=== PATIENT | male | born 1945 | race Caucasian/White ===

== ENCOUNTER 2018-04-03 09:28 | Inpatient (IN) | payer MEDICARE, OTHER ==
[2018-04-03] VITALS (23 sets, daily range): BP systolic 113–182; BP diastolic 54–86
[~2018-04-03] VITALS: Ht 180.3 cm; Wt 104.0 kg
[~2018-04-03 09:28] MED LIST: etomidate 2mg/ml inj. ONE; rocuronium 10mg/ml inj IV ONE
[2018-04-03] MEDS ORDERED: normal saline 1000ML IV soln IVB ONE (10:05)
[2018-04-03] MEDS ORDERED: pantoprazole 40MG/NS 100ML BAG 100 ML IV ONE (10:05)
[2018-04-03] MEDS ORDERED: ondansetron/PF 4mg/2ml inj IV ONE (10:05)
[2018-04-03] MEDS ORDERED: morphine 4 MG/ML inj SYRINge IV ONE ×2 (10:05→11:15)
[2018-04-03] MEDS ORDERED: ipratropium/albuterol 3ml nebule NEB ONE (10:05)
[2018-04-03] MEDS ORDERED: diltiazem 5mg/ml 5ml inj. IV ONE (10:10)
[2018-04-03 10:30] LABS: BASOPHILS % (AUTO) 0 % (0-1); EOSINOPHILS # (AUTO) 0.4 X10'3 (0-0.9); EOSINOPHILS % (AUTO) 1.7 % (0-6); LYMPHOCYTES # (AUTO) 1.6 X10'3 (1.1-4.8); LYMPHOCYTES % (AUTO) 6.9 % (21-51); MEAN CORPUSCULAR HEMOGLOBIN 30.7 PG (27.0-31.0); MEAN CORPUSCULAR HGB CONC 32.6 % (33.0-36.5); MEAN CORPUSCULAR VOLUME 94.2 FL (78-98); MEAN PLATELET VOLUME 8.2 FL (7.4-10.4); MONOCYTES # (AUTO) 0.7 X10'3 (0-0.9); MONOCYTES % (AUTO) 2.9 % (2-12); NEUTROPHILS # (AUTO) 20.2 X10'3 (1.8-7.7); NEUTROPHILS % (AUTO) 88.5 % (42-75); PLATELET COUNT 342 X10'3 (140-440); RED BLOOD COUNT 1.96 X10'6 (4.70-6.10); RED CELL DISTRIBUTION WIDTH 18.1 % (11.5-14.5); WHITE BLOOD COUNT 22.8 X10'3 (4.5-11.0)
[2018-04-03 10:36] LABS: HEMATOCRIT 18.5 % (42.0-52.0)
[2018-04-03 10:39] LABS: ALANINE AMINOTRANSFERASE 15 U/L (12-78); ALBUMIN 2.4 G/DL (3.4-5.0); ALBUMIN/GLOBULIN RATIO 0.6 (1.1-1.5); ALKALINE PHOSPHATASE 72 IU/L (46-116); ANION GAP 22 (8-16); ASPARTATE AMINO TRANSFERASE 18 U/L (10-37); BILIRUBIN,TOTAL 0.2 MG/DL (0.1-1.0); BLOOD UREA NITROGEN 112 MG/DL (7-18); BUN/CREATININE RATIO 40.6 (5.4-32.0); CALCIUM 7.4 MG/DL (8.5-10.1); CHLORIDE 107 MMOL/L (99-107); CREATINE KINASE 86 U/L (39-308); CREATININE 2.76 MG/DL (0.60-1.10); GLUCOSE 147 MG/DL (70-104); LIPASE 295 U/L (73-393); MAGNESIUM 1.3 MG/DL (1.5-2.4); POTASSIUM 4.6 MMOL/L (3.5-5.1); SODIUM 142 MMOL/L (135-145); TOTAL PROTEIN 6.1 G/DL (6.4-8.2); eGFR 23 ML/MIN
[2018-04-03 10:44] LABS: GIANT PLATELET FEW; LARGE PLATELETS FEW; PLATELET ESTIMATE NORMAL
[2018-04-03 10:45] LABS: ANISOCYTOSIS 2+; INR 1.3 INR; POLYCHROMASIA 1+; PROTHROMBIN TIME 13.1 SECONDS (9.0-12.0)
[2018-04-03] MEDS ORDERED: tranexamic acid 100mg/ml inj. IV ONE (10:45)
[2018-04-03] MEDS ORDERED: methylPREDNISolone sod succ 125mg/2ml vial IV ONE (10:45)
[2018-04-03 10:46] LABS: PARTIAL THROMBOPLASTIN TIME 25 SECONDS (22-32)
[2018-04-03] MEDS ORDERED: levoFLOXACIN-Levaquin 500mg/D5 100 ML IV ONE (11:00)
[2018-04-03 11:26] LABS: ABG BASE EXCESS -11.6 mmol/L (-2.0-3.0); ABG HCO3 12.6 mmol/L (22.0-26.0); ABG OXYGEN SATURATION 98.6 % (95-98); ABG PCO2 (T) 21.8 mmHg (35.0-48.0); ABG PO2 (T) 178.3 mmHg (83-108); ALLEN'S TEST Positive; FCOHb 0.2 % (0.5-1.5); FMetHb 0.4 % (0.3-1.12); TOTAL HEMOGLOBIN 5.3 G/dl (14.0-18.0)
[2018-04-03] MEDS: sodium chloride 0.45% 1,000 ML IV SCH ×2 (11:39→15:18)
[2018-04-03] MEDS ORDERED: ipratropium/albuterol 3ml nebule NEB PRN (11:40)
[2018-04-03] MEDS ORDERED: magnesium hydroxide 30ml (MOM) UD suspension PO PRN (11:40)
[2018-04-03] MEDS ORDERED: acetaminophen 325mg tablet PO PRN ×2 (11:40)
[2018-04-03] MEDS ORDERED: magnesium 1gm/100ml D5W IVPB 100 ML IV PRN (11:40)
[2018-04-03] MEDS ORDERED: magnesium Cl slow-release 64mg tablet PO PRN (11:40)
[2018-04-03] MEDS ORDERED: sodium phosphate inj. 15 MMOL in dextrose 5%-water 150 ML IV PRN (11:40)
[2018-04-03] MEDS ORDERED: ondansetron/PF 4mg/2ml inj IV PRN (11:40)
[2018-04-03] MEDS: K, MAG and/or Phos replacement - Verify level? MC SCH (11:40)
[2018-04-03] MEDS ORDERED: magnesium 4gm in 100ml NS 100 ML IV PRN (11:40)
[2018-04-03] MEDS ORDERED: sodium phosphate inj. 30 MMOL in dextrose 5%-water 250 ML IV PRN (11:40)
[2018-04-03] MEDS ORDERED: potassium Cl 20 mEq SR tablet PO PRN ×2 (11:40)
[2018-04-03 11:42] LABS: CLARITY,URINE CLEAR (Clear); COLOR,URINE YELLOW (Yellow); GLUCOSE, URINE NEGATIVE (Neg); KETONES,URINE NEGATIVE (Neg); LEUKOCYTE ESTERASE ,URINE NEGATIVE (Neg); NITRITES, URINE NEGATIVE (Neg); OCCULT BLOOD,URINE NEGATIVE (Neg); PROTEIN,URINE NEGATIVE (Neg); UROBILINOGEN,URINE 0.2 E.U/dL (0.2-1.0)
[2018-04-03 11:45] LABS: UA COLLECTION TYPE FOLEY CATH
[2018-04-03] MEDS ORDERED: midazolam 2 mg/2 ml injection ONE ×2 (11:58→12:04)
[2018-04-03] MEDS ORDERED: propofol 1000mg/100ml bottle 100 ML IV ONE ×2 (12:14→15:11)
[2018-04-03 12:16] LABS: PHOSPHORUS 3.7 MG/DL (2.3-4.5)
[2018-04-03 13:51] LABS: ABG BASE EXCESS -12.1 mmol/L (-2.0-3.0); ABG HCO3 12.8 mmol/L (22.0-26.0); ABG OXYGEN SATURATION 98.7 % (95-98); ABG PCO2 (T) 25.1 mmHg (35.0-48.0); ABG PH (T) 7.327 (7.350-7.450); ABG PO2 (T) 193.5 mmHg (83-108); ALLEN'S TEST Positive; FCOHb 0.4 % (0.5-1.5); FLOW 35 L/min; FMetHb 0.4 % (0.3-1.12); FO2Hb 97.9 % (94-100); MINUTE VOLUME 11 L/min; PEEP 5 cm H2O; RESPIRATORY RATE 12 b/min; RESPIRATORY RATE (OBSERVED) 13 b/min; TIDAL VOLUME 450 mL; TOTAL HEMOGLOBIN 5.2 G/dl (14.0-18.0)
[2018-04-03] MEDS ORDERED: normal saline 1000ml 1,000 ML IV ONE (14:05)
[2018-04-03 15:11] LABS: OCCULT BLOOD STOOL POSITIVE (Neg)
[2018-04-03 15:51] LABS: PO2 MIXED VENOUS (TEMP COR) 44.4 mmHg (35-46)
[2018-04-03 18:30] LABS: HEMATOCRIT 22.4 % (42.0-52.0); HEMOGLOBIN 7.5 g/dl (14.0-17.9); MEAN CORPUSCULAR HEMOGLOBIN 30.4 PG (27.0-31.0); MEAN CORPUSCULAR HGB CONC 33.4 % (33.0-36.5); MEAN CORPUSCULAR VOLUME 91.2 FL (78-98); MEAN PLATELET VOLUME 7.7 FL (7.4-10.4); PLATELET COUNT 235 X10'3 (140-440); RED BLOOD COUNT 2.46 X10'6 (4.70-6.10); RED CELL DISTRIBUTION WIDTH 17.6 % (11.5-14.5); WHITE BLOOD COUNT 18.4 X10'3 (4.5-11.0)
[2018-04-03] MEDS: pantoprazole 40MG/NS 100ML BAG 100 ML IV SCH ×2 (18:59→21:31)
[2018-04-03] MEDS: morphine 4 MG/ML inj SYRINge IV PRN (19:20)
[2018-04-03] MEDS: propofol 1000mg/100ml bottle 100 ML IV PRN (21:36)
[2018-04-04] VITALS (28 sets, daily range): BP systolic 120–193; BP diastolic 43–173
[2018-04-04] MEDS: pantoprazole 40MG/NS 100ML BAG 100 ML IV SCH ×5 (00:42→19:42)
[2018-04-04] MEDS: morphine 4 MG/ML inj SYRINge IV PRN ×3 (00:49→20:10)
[2018-04-04 03:15] LABS: BASOPHILS % (AUTO) 0 % (0-1); EOSINOPHILS # (AUTO) 0.1 X10'3 (0-0.9); EOSINOPHILS % (AUTO) 0.9 % (0-6); HEMATOCRIT 28.1 % (42.0-52.0); HEMOGLOBIN 9.3 g/dl (14.0-17.9); LYMPHOCYTES # (AUTO) 0.6 X10'3 (1.1-4.8); LYMPHOCYTES % (AUTO) 3.9 % (21-51); MEAN CORPUSCULAR HEMOGLOBIN 30.1 PG (27.0-31.0); MEAN CORPUSCULAR HGB CONC 33.1 % (33.0-36.5); MEAN CORPUSCULAR VOLUME 90.9 FL (78-98); MONOCYTES # (AUTO) 0.2 X10'3 (0-0.9); MONOCYTES % (AUTO) 1.1 % (2-12); NEUTROPHILS # (AUTO) 14.8 X10'3 (1.8-7.7); NEUTROPHILS % (AUTO) 94.1 % (42-75); PLATELET COUNT 213 X10'3 (140-440); RED BLOOD COUNT 3.09 X10'6 (4.70-6.10); RED CELL DISTRIBUTION WIDTH 17.2 % (11.5-14.5); WHITE BLOOD COUNT 15.7 X10'3 (4.5-11.0)
[2018-04-04 03:30] LABS: INR 1.1 INR; PARTIAL THROMBOPLASTIN TIME 25 SECONDS (22-32); PROTHROMBIN TIME 11.3 SECONDS (9.0-12.0)
[2018-04-04] MEDS: propofol 1000mg/100ml bottle 100 ML IV PRN ×2 (03:47→07:28)
[2018-04-04 03:48] LABS: ALANINE AMINOTRANSFERASE 16 U/L (12-78); ALBUMIN 2.2 G/DL (3.4-5.0); ALBUMIN/GLOBULIN RATIO 0.6 (1.1-1.5); ALKALINE PHOSPHATASE 67 IU/L (46-116); ANION GAP 15 (8-16); ASPARTATE AMINO TRANSFERASE 18 U/L (10-37); BILIRUBIN,TOTAL 0.5 MG/DL (0.1-1.0); BLOOD UREA NITROGEN 87 MG/DL (7-18); BUN/CREATININE RATIO 43.7 (5.4-32.0); CALCIUM 7.1 MG/DL (8.5-10.1); CHLORIDE 112 MMOL/L (99-107); CREATININE 1.99 MG/DL (0.60-1.10); GLUCOSE 149 MG/DL (70-104); MAGNESIUM 3.4 MG/DL (1.5-2.4); PHOSPHORUS 4.5 MG/DL (2.3-4.5); SODIUM 144 MMOL/L (135-145); TOTAL CARBON DIOXIDE 16.9 MMOL/L (24-32); TOTAL PROTEIN 5.6 G/DL (6.4-8.2); eGFR 33 ML/MIN
[2018-04-04 03:56] LABS: ABG PCO2 (T) 28.5 mmHg (35.0-48.0); ABG PH (T) 7.309 (7.350-7.450); ABG PO2 (T) 141.9 mmHg (83-108); ALLEN'S TEST Positive; FCOHb 0.1 % (0.5-1.5); FMetHb 0.2 % (0.3-1.12); FO2Hb 97.7 % (94-100); MINUTE VOLUME 9 L/min; PATIENT TEMPERATURE 36.8; PEEP 5 cm H2O; RESPIRATORY RATE 12 b/min; RESPIRATORY RATE (OBSERVED) 19 b/min; TIDAL VOLUME 450 mL; TOTAL HEMOGLOBIN 10.2 G/dl (14.0-18.0)
[2018-04-04 06:34] LABS: CREATINE KINASE 89 U/L (39-308)
[2018-04-04] MEDS: K, MAG and/or Phos replacement - Verify level? MC SCH ×2 (07:06→07:22)
[2018-04-04] MEDS: sodium chloride 0.45% 1,000 ML IV SCH ×2 (07:30→19:43)
[2018-04-04 11:17] LABS: HEMATOCRIT 30.2 % (42.0-52.0); HEMOGLOBIN 10.2 g/dl (14.0-17.9); MEAN CORPUSCULAR HGB CONC 33.8 % (33.0-36.5); MEAN CORPUSCULAR VOLUME 88.7 FL (78-98); MEAN PLATELET VOLUME 7.7 FL (7.4-10.4); PLATELET COUNT 226 X10'3 (140-440); RED BLOOD COUNT 3.41 X10'6 (4.70-6.10); RED CELL DISTRIBUTION WIDTH 17.2 % (11.5-14.5); WHITE BLOOD COUNT 14.8 X10'3 (4.5-11.0)
[2018-04-04] MEDS: morphine 2 MG/ML inj. syringe IV PRN (14:09)
[2018-04-04] MEDS ORDERED: levoFLOXACIN 500mg tablet PO ONE (15:01)
[2018-04-04] MEDS: labetalol 100mg tablet PO PRN (15:20)
[2018-04-04 19:11] LABS: HEMATOCRIT 29.9 % (42.0-52.0); HEMOGLOBIN 9.9 g/dl (14.0-17.9); MEAN CORPUSCULAR HEMOGLOBIN 29.8 PG (27.0-31.0); MEAN CORPUSCULAR HGB CONC 33.3 % (33.0-36.5); MEAN CORPUSCULAR VOLUME 89.3 FL (78-98); MEAN PLATELET VOLUME 7.8 FL (7.4-10.4); PLATELET COUNT 241 X10'3 (140-440); RED BLOOD COUNT 3.34 X10'6 (4.70-6.10); RED CELL DISTRIBUTION WIDTH 17.8 % (11.5-14.5); WHITE BLOOD COUNT 15.2 X10'3 (4.5-11.0)
[2018-04-05] VITALS (22 sets, daily range): BP systolic 130–165; BP diastolic 53–79
[2018-04-05] MEDS: pantoprazole 40MG/NS 100ML BAG 100 ML IV SCH ×3 (00:57→10:23)
[2018-04-05] MEDS: morphine 4 MG/ML inj SYRINge IV PRN ×2 (00:59→06:39)
[2018-04-05 03:12] LABS: BASOPHILS % (AUTO) 0 % (0-1); EOSINOPHILS # (AUTO) 0.1 X10'3 (0-0.9); EOSINOPHILS % (AUTO) 0.8 % (0-6); HEMATOCRIT 28.9 % (42.0-52.0); HEMOGLOBIN 9.4 g/dl (14.0-17.9); LYMPHOCYTES # (AUTO) 1.1 X10'3 (1.1-4.8); LYMPHOCYTES % (AUTO) 7.8 % (21-51); MEAN CORPUSCULAR HEMOGLOBIN 29.1 PG (27.0-31.0); MEAN CORPUSCULAR HGB CONC 32.5 % (33.0-36.5); MEAN CORPUSCULAR VOLUME 89.7 FL (78-98); MEAN PLATELET VOLUME 7.6 FL (7.4-10.4); MONOCYTES # (AUTO) 0.7 X10'3 (0-0.9); MONOCYTES % (AUTO) 5.2 % (2-12); NEUTROPHILS # (AUTO) 11.7 X10'3 (1.8-7.7); NEUTROPHILS % (AUTO) 86.2 % (42-75); PLATELET COUNT 235 X10'3 (140-440); RED BLOOD COUNT 3.22 X10'6 (4.70-6.10); RED CELL DISTRIBUTION WIDTH 17.9 % (11.5-14.5); WHITE BLOOD COUNT 13.6 X10'3 (4.5-11.0)
[2018-04-05 03:24] LABS: ANION GAP 10 (8-16); CHLORIDE 114 MMOL/L (99-107); GLUCOSE 96 MG/DL (70-104); POTASSIUM 4.1 MMOL/L (3.5-5.1); SODIUM 144 MMOL/L (135-145)
[2018-04-05 03:25] LABS: ALANINE AMINOTRANSFERASE 13 U/L (12-78); ALBUMIN 2.1 G/DL (3.4-5.0); ALBUMIN/GLOBULIN RATIO 0.7 (1.1-1.5); ALKALINE PHOSPHATASE 60 IU/L (46-116); ASPARTATE AMINO TRANSFERASE 15 U/L (10-37); BILIRUBIN,TOTAL 0.3 MG/DL (0.1-1.0); BLOOD UREA NITROGEN 59 MG/DL (7-18); BUN/CREATININE RATIO 42.8 (5.4-32.0); CALCIUM 7.3 MG/DL (8.5-10.1); CREATININE 1.38 MG/DL (0.60-1.10); MAGNESIUM 2.2 MG/DL (1.5-2.4); PHOSPHORUS 2.6 MG/DL (2.3-4.5); TOTAL PROTEIN 5.2 G/DL (6.4-8.2); eGFR 50 ML/MIN
[2018-04-05 03:41] LABS: INR 1.1 INR; PARTIAL THROMBOPLASTIN TIME 24 SECONDS (22-32)
[2018-04-05] MEDS: LORazepam 1 MG tablet PO PRN (03:53)
[2018-04-05] MEDS: labetalol 100mg tablet PO PRN (03:53)
[2018-04-05] MEDS: K, MAG and/or Phos replacement - Verify level? MC SCH (08:00)
[2018-04-05] MEDS ORDERED: COLC0.6T69 PO (09:15)
[2018-04-05] MEDS ORDERED: OMEP-50 (09:15)
[2018-04-05] MEDS ORDERED: FINA5TAB11 PO (09:15)
[2018-04-05] MEDS ORDERED: LISI-600 PO (09:15)
[2018-04-05] MEDS ORDERED: CLON-529 PO (09:15)
[2018-04-05] MEDS ORDERED: MYCOL15CR TOP (09:15)
[2018-04-05] MEDS ORDERED: ALLO100T PO (09:15)
[2018-04-05] MEDS ORDERED: TAMS0.4C32 PO (09:15)
[2018-04-05] MEDS ORDERED: MORP30CP13 (09:15)
[2018-04-05] MEDS ORDERED: CLOP75TA35 PO (09:15)
[2018-04-05] MEDS ORDERED: METO25TA6 PO (09:15)
[2018-04-05] MEDS: sodium chloride 0.45% 1,000 ML IV SCH (10:23)
[2018-04-05 11:15] LABS: HEMATOCRIT 31.1 % (42.0-52.0); HEMOGLOBIN 10.2 g/dl (14.0-17.9); MEAN CORPUSCULAR HEMOGLOBIN 29.4 PG (27.0-31.0); MEAN CORPUSCULAR HGB CONC 32.8 % (33.0-36.5); MEAN CORPUSCULAR VOLUME 89.7 FL (78-98); MEAN PLATELET VOLUME 7.4 FL (7.4-10.4); PLATELET COUNT 221 X10'3 (140-440); RED BLOOD COUNT 3.47 X10'6 (4.70-6.10); RED CELL DISTRIBUTION WIDTH 18.6 % (11.5-14.5); WHITE BLOOD COUNT 11.7 X10'3 (4.5-11.0)
[2018-04-05] MEDS: levoFLOXACIN 500mg tablet PO SCH (11:59)
[2018-04-05] MEDS: cloNIDine 0.1 mg tablet PO SCH ×2 (13:05→20:43)
[2018-04-05] MEDS ORDERED: vancomycin/NS 1 GM ADD-VANTAGE 250 ML IV ONE (16:00)
[2018-04-05] MEDS ORDERED: vancomycin/NS 1 GM ADD-VANTAGE 250 ML IV SCH (20:00)
[2018-04-05] MEDS ORDERED: metoprolol tartrate 25mg tablet PO SCH (20:00)
[2018-04-05] MEDS: pantoprazole 40 MG vial IV SCH (20:43)
[2018-04-05] MEDS: morphine ER 30mg tablet PO SCH (20:43)
[2018-04-05] MEDS: nystatin/triamcinolone cream 15gm TP SCH (20:44)
[2018-04-05 22:16] LABS: HEMATOCRIT 30.6 % (42.0-52.0); HEMOGLOBIN 10.1 g/dl (14.0-17.9); MEAN CORPUSCULAR HEMOGLOBIN 29.6 PG (27.0-31.0); MEAN CORPUSCULAR VOLUME 89.6 FL (78-98); MEAN PLATELET VOLUME 7.1 FL (7.4-10.4); PLATELET COUNT 214 X10'3 (140-440); RED BLOOD COUNT 3.41 X10'6 (4.70-6.10); RED CELL DISTRIBUTION WIDTH 18.8 % (11.5-14.5); WHITE BLOOD COUNT 10.3 X10'3 (4.5-11.0)
[2018-04-06] MEDS: morphine 2 MG/ML inj. syringe IV PRN ×2 (02:43→06:44)
[2018-04-06 03:00] VITALS: BP 139/53
[2018-04-06] MEDS: vancomycin inj 1,250 MG in normal saline 250ml IV soln 250 ML IV SCH ×2 (04:00→16:34)
[2018-04-06 06:11] LABS: BASOPHILS % (AUTO) 0.2 % (0-1); EOSINOPHILS # (AUTO) 0.1 X10'3 (0-0.9); EOSINOPHILS % (AUTO) 1.3 % (0-6); HEMATOCRIT 30.8 % (42.0-52.0); HEMOGLOBIN 10.2 g/dl (14.0-17.9); LYMPHOCYTES # (AUTO) 1.1 X10'3 (1.1-4.8); LYMPHOCYTES % (AUTO) 13.3 % (21-51); MEAN CORPUSCULAR HEMOGLOBIN 29.9 PG (27.0-31.0); MEAN CORPUSCULAR HGB CONC 33.2 % (33.0-36.5); MEAN CORPUSCULAR VOLUME 90.2 FL (78-98); MEAN PLATELET VOLUME 7.3 FL (7.4-10.4); MONOCYTES # (AUTO) 0.5 X10'3 (0-0.9); MONOCYTES % (AUTO) 5.6 % (2-12); NEUTROPHILS # (AUTO) 6.8 X10'3 (1.8-7.7); NEUTROPHILS % (AUTO) 79.6 % (42-75); PLATELET COUNT 205 X10'3 (140-440); RED BLOOD COUNT 3.41 X10'6 (4.70-6.10); RED CELL DISTRIBUTION WIDTH 18.9 % (11.5-14.5); WHITE BLOOD COUNT 8.5 X10'3 (4.5-11.0)
[2018-04-06 06:27] LABS: INR 1.1 INR; PARTIAL THROMBOPLASTIN TIME 24 SECONDS (22-32); PROTHROMBIN TIME 10.7 SECONDS (9.0-12.0)
[2018-04-06 06:32] LABS: ALANINE AMINOTRANSFERASE 19 U/L (12-78); ALBUMIN/GLOBULIN RATIO 0.7 (1.1-1.5); ALKALINE PHOSPHATASE 86 IU/L (46-116); ANION GAP 7 (8-16); ASPARTATE AMINO TRANSFERASE 35 U/L (10-37); BILIRUBIN,TOTAL 0.6 MG/DL (0.1-1.0); BLOOD UREA NITROGEN 33 MG/DL (7-18); BUN/CREATININE RATIO 31.4 (5.4-32.0); CALCIUM 7.6 MG/DL (8.5-10.1); CHLORIDE 115 MMOL/L (99-107); CREATININE 1.05 MG/DL (0.60-1.10); GLUCOSE 93 MG/DL (70-104); MAGNESIUM 1.6 MG/DL (1.5-2.4); POTASSIUM 4.1 MMOL/L (3.5-5.1); SODIUM 144 MMOL/L (135-145); TOTAL CARBON DIOXIDE 22.2 MMOL/L (24-32); eGFR 69 ML/MIN
[2018-04-06] MEDS: sodium chloride 0.45% 1,000 ML IV SCH (06:45)
[2018-04-06 07:00] VITALS: BP 144/51
[2018-04-06 07:43] LABS: ANISOCYTOSIS 2+; PLATELET ESTIMATE NORMAL; POLYCHROMASIA FEW
[2018-04-06] MEDS ORDERED: colchicine 0.6mg tablet PO SCH (08:00)
[2018-04-06] MEDS: K, MAG and/or Phos replacement - Verify level? MC SCH (08:00)
[2018-04-06] MEDS: clopidogrel 75mg tablet PO SCH (08:18)
[2018-04-06] MEDS: lisinopril 20mg tablet PO SCH (08:18)
[2018-04-06] MEDS: allopurinol 100mg tablet PO SCH (08:19)
[2018-04-06] MEDS: cloNIDine 0.1 mg tablet PO SCH ×3 (08:19→21:18)
[2018-04-06] MEDS: morphine ER 30mg tablet PO SCH (08:19)
[2018-04-06] MEDS: pantoprazole 40 MG vial IV SCH ×2 (08:28→21:18)
[2018-04-06] MEDS: nystatin/triamcinolone cream 15gm TP SCH ×2 (08:28→20:00)
[2018-04-06] MEDS: tamsulosin 0.4mg capsule PO SCH (08:29)
[2018-04-06] MEDS: Neutra Phos packet PO PRN ×3 (08:35→17:07)
[2018-04-06 11:00] VITALS: BP 139/44
[2018-04-06] MEDS: finasteride 5mg tablet PO SCH ×2 (11:04→11:09)
[2018-04-06] MEDS: levoFLOXACIN 500mg tablet PO SCH (11:10)
[2018-04-06 11:28] LABS: HEMATOCRIT 34.6 % (42.0-52.0); HEMOGLOBIN 11.4 g/dl (14.0-17.9); MEAN CORPUSCULAR HEMOGLOBIN 29.6 PG (27.0-31.0); MEAN CORPUSCULAR HGB CONC 32.9 % (33.0-36.5); MEAN PLATELET VOLUME 7.6 FL (7.4-10.4); PLATELET COUNT 206 X10'3 (140-440); RED BLOOD COUNT 3.85 X10'6 (4.70-6.10); RED CELL DISTRIBUTION WIDTH 19.1 % (11.5-14.5); WHITE BLOOD COUNT 9.5 X10'3 (4.5-11.0)
[2018-04-06 15:00] VITALS: BP 135/61
[2018-04-06 19:00] VITALS: BP 120/51
[2018-04-06 21:57] LABS: HEMATOCRIT 32.2 % (42.0-52.0); HEMOGLOBIN 10.6 g/dl (14.0-17.9); MEAN CORPUSCULAR HGB CONC 33.1 % (33.0-36.5); MEAN CORPUSCULAR VOLUME 90.7 FL (78-98); MEAN PLATELET VOLUME 7.1 FL (7.4-10.4); PLATELET COUNT 207 X10'3 (140-440); RED BLOOD COUNT 3.55 X10'6 (4.70-6.10); RED CELL DISTRIBUTION WIDTH 18.5 % (11.5-14.5); WHITE BLOOD COUNT 7.9 X10'3 (4.5-11.0)
[2018-04-06 23:00] VITALS: BP 112/47
[2018-04-07 03:00] VITALS: BP 105/50
[2018-04-07] MEDS: vancomycin inj 1,250 MG in normal saline 250ml IV soln 250 ML IV SCH (04:37)
[2018-04-07 07:08] LABS: BASOPHILS % (AUTO) 0.1 % (0-1); EOSINOPHILS # (AUTO) 0.1 X10'3 (0-0.9); EOSINOPHILS % (AUTO) 1.6 % (0-6); HEMOGLOBIN 9.5 g/dl (14.0-17.9); LYMPHOCYTES # (AUTO) 0.7 X10'3 (1.1-4.8); LYMPHOCYTES % (AUTO) 9.7 % (21-51); MEAN CORPUSCULAR HEMOGLOBIN 29.7 PG (27.0-31.0); MEAN CORPUSCULAR HGB CONC 32.9 % (33.0-36.5); MEAN CORPUSCULAR VOLUME 90.4 FL (78-98); MEAN PLATELET VOLUME 7.5 FL (7.4-10.4); MONOCYTES # (AUTO) 0.4 X10'3 (0-0.9); MONOCYTES % (AUTO) 6.1 % (2-12); NEUTROPHILS # (AUTO) 5.9 X10'3 (1.8-7.7); NEUTROPHILS % (AUTO) 82.5 % (42-75); PLATELET COUNT 195 X10'3 (140-440); RED BLOOD COUNT 3.21 X10'6 (4.70-6.10); RED CELL DISTRIBUTION WIDTH 18.3 % (11.5-14.5); WHITE BLOOD COUNT 7.2 X10'3 (4.5-11.0)
[2018-04-07 07:22] VITALS: BP 129/69
[2018-04-07 07:26] LABS: ALANINE AMINOTRANSFERASE 20 U/L (12-78); ALBUMIN 1.9 G/DL (3.4-5.0); ALBUMIN/GLOBULIN RATIO 0.7 (1.1-1.5); ALKALINE PHOSPHATASE 83 IU/L (46-116); ANION GAP 9 (8-16); ASPARTATE AMINO TRANSFERASE 23 U/L (10-37); BILIRUBIN,TOTAL 0.6 MG/DL (0.1-1.0); BLOOD UREA NITROGEN 27 MG/DL (7-18); BUN/CREATININE RATIO 26.7 (5.4-32.0); CALCIUM 7.4 MG/DL (8.5-10.1); CHLORIDE 115 MMOL/L (99-107); CREATININE 1.01 MG/DL (0.60-1.10); GLUCOSE 112 MG/DL (70-104); MAGNESIUM 1.4 MG/DL (1.5-2.4); PHOSPHORUS 2.3 MG/DL (2.3-4.5); POTASSIUM 4.1 MMOL/L (3.5-5.1); SODIUM 144 MMOL/L (135-145); TOTAL CARBON DIOXIDE 20.4 MMOL/L (24-32); TOTAL PROTEIN 4.8 G/DL (6.4-8.2); eGFR 72 ML/MIN
[2018-04-07 07:37] LABS: INR 1.1 INR; PARTIAL THROMBOPLASTIN TIME 27 SECONDS (22-32); PROTHROMBIN TIME 10.7 SECONDS (9.0-12.0)
[2018-04-07] MEDS: K, MAG and/or Phos replacement - Verify level? MC SCH (08:00)
[2018-04-07] MEDS: nystatin/triamcinolone cream 15gm TP SCH ×2 (08:00→20:14)
[2018-04-07 08:22] LABS: NUCLEATED RED BLOOD CELLS 1 /100WBC (0-0); TOTAL CELLS COUNTED 100
[2018-04-07 08:27] LABS: ANISOCYTOSIS 2+; ELLIPTOCYTES FEW; MICROCYTOSIS FEW; PLATELET ESTIMATE NORMAL; POLYCHROMASIA 1+; TEAR DROP CELLS FEW
[2018-04-07 08:28] LABS: SPHEROCYTES FEW
[2018-04-07 08:30] LABS: HYPOCHROMASIA 1+
[2018-04-07 08:31] LABS: POIKILOCYTOSIS 1+
[2018-04-07] MEDS: cloNIDine 0.1 mg tablet PO SCH ×3 (08:44→20:14)
[2018-04-07] MEDS: lisinopril 20mg tablet PO SCH (08:45)
[2018-04-07] MEDS: allopurinol 100mg tablet PO SCH (08:45)
[2018-04-07] MEDS: tamsulosin 0.4mg capsule PO SCH (08:45)
[2018-04-07] MEDS: clopidogrel 75mg tablet PO SCH (08:45)
[2018-04-07] MEDS: pantoprazole 40 MG vial IV SCH ×2 (08:45→20:13)
[2018-04-07 11:00] VITALS: BP 121/54
[2018-04-07] MEDS ORDERED: levoFLOXACIN 500mg tablet PO ONE (12:30)
[2018-04-07 15:00] VITALS: BP 132/57
[2018-04-07] MEDS ORDERED: VANCOMYCIN LEVEL IV NR (15:30)
[2018-04-07] MEDS: vancomycin/NS 1 GM ADD-VANTAGE 250 ML IV SCH (16:49)
[2018-04-07 19:00] VITALS: BP 139/59
[2018-04-07] MEDS: LORazepam 1 MG tablet PO PRN (20:19)
[2018-04-07 23:00] VITALS: BP 133/63
[2018-04-08] VITALS (9 sets, daily range): BP systolic 115–141; BP diastolic 46–64
[2018-04-08] MEDS: vancomycin/NS 1 GM ADD-VANTAGE 250 ML IV SCH (05:15)
[2018-04-08 05:41] LABS: BASOPHILS % (AUTO) 0.2 % (0-1); EOSINOPHILS # (AUTO) 0.2 X10'3 (0-0.9); EOSINOPHILS % (AUTO) 2.5 % (0-6); HEMATOCRIT 29.1 % (42.0-52.0); HEMOGLOBIN 9.6 g/dl (14.0-17.9); LYMPHOCYTES # (AUTO) 0.7 X10'3 (1.1-4.8); LYMPHOCYTES % (AUTO) 10.4 % (21-51); MEAN CORPUSCULAR HEMOGLOBIN 29.9 PG (27.0-31.0); MEAN CORPUSCULAR HGB CONC 32.9 % (33.0-36.5); MEAN CORPUSCULAR VOLUME 90.9 FL (78-98); MEAN PLATELET VOLUME 7.6 FL (7.4-10.4); MONOCYTES # (AUTO) 0.5 X10'3 (0-0.9); MONOCYTES % (AUTO) 8.2 % (2-12); NEUTROPHILS # (AUTO) 5.1 X10'3 (1.8-7.7); NEUTROPHILS % (AUTO) 78.7 % (42-75); PLATELET COUNT 177 X10'3 (140-440); RED CELL DISTRIBUTION WIDTH 18.5 % (11.5-14.5); WHITE BLOOD COUNT 6.5 X10'3 (4.5-11.0)
[2018-04-08 05:59] LABS: PARTIAL THROMBOPLASTIN TIME 28 SECONDS (22-32); PROTHROMBIN TIME 10.5 SECONDS (9.0-12.0)
[2018-04-08 06:02] LABS: ALANINE AMINOTRANSFERASE 16 U/L (12-78); ALBUMIN 1.8 G/DL (3.4-5.0); ALBUMIN/GLOBULIN RATIO 0.6 (1.1-1.5); ALKALINE PHOSPHATASE 102 IU/L (46-116); ANION GAP 9 (8-16); ASPARTATE AMINO TRANSFERASE 22 U/L (10-37); BILIRUBIN,TOTAL 0.4 MG/DL (0.1-1.0); BLOOD UREA NITROGEN 24 MG/DL (7-18); BUN/CREATININE RATIO 27.3 (5.4-32.0); CALCIUM 7.3 MG/DL (8.5-10.1); CHLORIDE 114 MMOL/L (99-107); CREATININE 0.88 MG/DL (0.60-1.10); GLUCOSE 102 MG/DL (70-104); MAGNESIUM 1.2 MG/DL (1.5-2.4); PHOSPHORUS 2.1 MG/DL (2.3-4.5); PLATELET ESTIMATE NORMAL; POLYCHROMASIA FEW; POTASSIUM 3.8 MMOL/L (3.5-5.1); SODIUM 143 MMOL/L (135-145); TOTAL CARBON DIOXIDE 20.2 MMOL/L (24-32); TOTAL PROTEIN 4.7 G/DL (6.4-8.2); eGFR 85 ML/MIN
[2018-04-08 06:03] LABS: ANISOCYTOSIS 2+
[2018-04-08] MEDS: finasteride 5mg tablet PO SCH (07:16)
[2018-04-08] MEDS: cloNIDine 0.1 mg tablet PO SCH ×3 (07:16→21:29)
[2018-04-08] MEDS: pantoprazole 40 MG vial IV SCH (07:16)
[2018-04-08] MEDS: allopurinol 100mg tablet PO SCH (07:17)
[2018-04-08] MEDS: tamsulosin 0.4mg capsule PO SCH (07:17)
[2018-04-08] MEDS: lisinopril 20mg tablet PO SCH (07:17)
[2018-04-08] MEDS: nystatin/triamcinolone cream 15gm TP SCH ×2 (08:00→20:00)
[2018-04-08] MEDS ORDERED: methylnaltrexone br 12mg/0.6ml inj***SubQ only SQ SCH (08:00)
[2018-04-08] MEDS: K, MAG and/or Phos replacement - Verify level? MC SCH (08:00)
[2018-04-08] MEDS ORDERED: levoFLOXACIN 500mg tablet PO SCH (11:00)
[2018-04-08] MEDS ORDERED: LIDOcaine Viscous 15ml cup ONE (15:01)
[2018-04-08] MEDS ORDERED: MIDAZolam 5mg/5ml vial ONE (15:01)
[2018-04-08] MEDS ORDERED: fentaNYL/PF 50MCG/1 ML 2ML syringe ONE (15:01)
[2018-04-08] MEDS: pantoprazole 40mg Tablet.DR PO SCH (21:29)
[2018-04-09 03:00] VITALS: BP 139/69
[2018-04-09] MEDS ORDERED: VANCOMYCIN LEVEL IV ONE (04:30)
[2018-04-09 04:42] LABS: BASOPHILS % (AUTO) 0.2 % (0-1); EOSINOPHILS # (AUTO) 0.2 X10'3 (0-0.9); HEMATOCRIT 28.5 % (42.0-52.0); HEMOGLOBIN 9.4 g/dl (14.0-17.9); LYMPHOCYTES # (AUTO) 0.6 X10'3 (1.1-4.8); LYMPHOCYTES % (AUTO) 9.2 % (21-51); MEAN CORPUSCULAR HEMOGLOBIN 29.8 PG (27.0-31.0); MEAN CORPUSCULAR HGB CONC 32.9 % (33.0-36.5); MEAN CORPUSCULAR VOLUME 90.6 FL (78-98); MEAN PLATELET VOLUME 7.7 FL (7.4-10.4); MONOCYTES # (AUTO) 0.7 X10'3 (0-0.9); MONOCYTES % (AUTO) 11.1 % (2-12); NEUTROPHILS # (AUTO) 4.6 X10'3 (1.8-7.7); NEUTROPHILS % (AUTO) 75.5 % (42-75); PLATELET COUNT 177 X10'3 (140-440); RED BLOOD COUNT 3.14 X10'6 (4.70-6.10); RED CELL DISTRIBUTION WIDTH 18.2 % (11.5-14.5); WHITE BLOOD COUNT 6.1 X10'3 (4.5-11.0)
[2018-04-09 04:55] LABS: ALANINE AMINOTRANSFERASE 15 U/L (12-78); ALBUMIN 1.8 G/DL (3.4-5.0); ALBUMIN/GLOBULIN RATIO 0.6 (1.1-1.5); ALKALINE PHOSPHATASE 88 IU/L (46-116); ANION GAP 9 (8-16); ASPARTATE AMINO TRANSFERASE 14 U/L (10-37); BILIRUBIN,TOTAL 0.4 MG/DL (0.1-1.0); BLOOD UREA NITROGEN 18 MG/DL (7-18); BUN/CREATININE RATIO 22.2 (5.4-32.0); CALCIUM 7.4 MG/DL (8.5-10.1); CHLORIDE 115 MMOL/L (99-107); CREATININE 0.81 MG/DL (0.60-1.10); GLUCOSE 107 MG/DL (70-104); MAGNESIUM 1.2 MG/DL (1.5-2.4); POTASSIUM 3.8 MMOL/L (3.5-5.1); SODIUM 145 MMOL/L (135-145); TOTAL CARBON DIOXIDE 21.2 MMOL/L (24-32); TOTAL PROTEIN 4.7 G/DL (6.4-8.2); VANCOMYCIN,TROUGH 17.2 UG/ML (6.0-14.0); eGFR > 90 ML/MIN
[2018-04-09 04:58] LABS: INR 1.1 INR; PARTIAL THROMBOPLASTIN TIME 29 SECONDS (22-32); PROTHROMBIN TIME 10.9 SECONDS (9.0-12.0)
[2018-04-09] MEDS: vancomycin/NS 1 GM ADD-VANTAGE 250 ML IV SCH (05:00)
[2018-04-09 05:36] LABS: ANISOCYTOSIS 2+; PLATELET ESTIMATE NORMAL; SCHISTOCYTES FEW
[2018-04-09 07:00] VITALS: BP 155/67
[2018-04-09] MEDS: pantoprazole 40mg Tablet.DR PO SCH (07:41)
[2018-04-09] MEDS: allopurinol 100mg tablet PO SCH (07:41)
[2018-04-09] MEDS: tamsulosin 0.4mg capsule PO SCH (07:41)
[2018-04-09] MEDS: finasteride 5mg tablet PO SCH (07:41)
[2018-04-09 07:43] VITALS: BP_SYST 168
[2018-04-09] MEDS: cloNIDine 0.1 mg tablet PO SCH (07:43)
[2018-04-09] MEDS: lisinopril 20mg tablet PO SCH (07:43)
[2018-04-09] MEDS ORDERED: PANT-47 PO (08:18)
== END 2018-04-09 10:45 | disposition home or self-care (01) | DRG 871 ==
LOC: ER 09:30 → ED HOLD 11:39 → EDBEDREQ 14:12 → CICU 2S 14:39 → PCU 3S 04-05 16:15
PROVIDERS: ADMIT Internal Medicine Critical Care Medicine; ATTEND Internal Medicine
PROC: 5A1935Z Respiratory Ventilation, Less than 24 Consecutive Hours (ICD-10-PCS; principal; 2018-04-03)
PROC: 0BH17EZ Insertion of Endotracheal Airway into Trachea, Via Natural or Artificial Opening (ICD-10-PCS; 2018-04-03)
PROC: 30233N1 Transfusion of Nonautologous Red Blood Cells into Peripheral Vein, Percutaneous Approach (ICD-10-PCS; 2018-04-03)
PROC: 02HV33Z Insertion of Infusion Device into Superior Vena Cava, Percutaneous Approach (ICD-10-PCS; 2018-04-03)
PROC: 30233N1 Transfusion of Nonautologous Red Blood Cells into Peripheral Vein, Percutaneous Approach (ICD-10-PCS; 2018-04-04)
PROC: 30233N1 Transfusion of Nonautologous Red Blood Cells into Peripheral Vein, Percutaneous Approach (ICD-10-PCS; 2018-04-05)
PROC: 0DB58ZX Excision of Esophagus, Via Natural or Artificial Opening Endoscopic, Diagnostic (ICD-10-PCS; 2018-04-08)
PROC: 0DB68ZX Excision of Stomach, Via Natural or Artificial Opening Endoscopic, Diagnostic (ICD-10-PCS; 2018-04-08)
DX: A41.9 Sepsis, unspecified organism (principal); J18.1 Lobar pneumonia, unspecified organism; K26.4 Chronic or unspecified duodenal ulcer with hemorrhage; E43 Unspecified severe protein-calorie malnutrition; G93.41 Metabolic encephalopathy; J96.01 Acute respiratory failure with hypoxia; K22.10 Ulcer of esophagus without bleeding; D62 Acute posthemorrhagic anemia; N17.9 Acute kidney failure, unspecified; I10 Essential (primary) hypertension; J98.01 Acute bronchospasm; K21.0 Gastro-esophageal reflux disease with esophagitis; K29.70 Gastritis, unspecified, without bleeding; M10.9 Gout, unspecified; I48.91 Unspecified atrial fibrillation; N40.0 Benign prostatic hyperplasia without lower urinary tract symptoms; E83.42 Hypomagnesemia; E83.39 Other disorders of phosphorus metabolism; Z79.02 Long term (current) use of antithrombotics/antiplatelets; Z79.899 Other long term (current) drug therapy; Z86.73 Personal history of transient ischemic attack (TIA), and cerebral infarction without residual deficits; Z87.891 Personal history of nicotine dependence; Z68.32 Body mass index [BMI] 32.0-32.9, adult
CPT/HCPCS: 36415; 36600; 43239; 71045; 80053; 80202; 81003; 82140; 82272; 82550; 82803; 82810; 82948; 83036; 83605; 83690; 83735; 84100; 84484; 85018; 85025; 85027; 85384; 85610; 85730; 86885; 86900; 86901; 86920; 87040; 87070; 87077; 88305; 88312; 88342; 92616; 93005; 94002; 94003; 94640; 94760; 97116; 97161; 97530; 99152; A4620; C9113; G0378; J1956; J2250; J2270; J2405; J2704; J2930; J3010; J3370; J3475; J3490; J7030; P9016